=== PATIENT | female | born 1950 | race Hispanic/Latino ===

== ENCOUNTER 2022-12-22 06:21 | Day surgery (SDC) | payer MEDICARE ==
[2022-12-20 12:44] VITALS: BP 175/77; PULSE 66; RESP 18
[2022-12-20 12:46] LABS: BASOPHILS # (AUTO) 0.11 K/uL (0.00-0.20); BASOPHILS % (AUTO) 1.1 % (0.0-5.0); HEMATOCRIT 36.7 % (36-48); IMMATURE GRANULOCYTE ABSOLUTE 0.03 K/uL (0-1); LYMPHOCYTES # (AUTO) 4.6 K/uL (1.0-4.8); LYMPHOCYTES % (AUTO) 46.2 % (21.0-51.0); MEAN CORPUSCULAR HEMOGLOBIN 31.9 pg (27.0-33.0); MEAN CORPUSCULAR HGB CONC 33.5 g/dL (32.0-36.0); MEAN CORPUSCULAR VOLUME 95.1 fL (79-99); MONOCYTES # (AUTO) 0.8 K/uL (0.1-1.0); MONOCYTES % (AUTO) 8.3 % (3.0-13.0); NEUTROPHILS # (AUTO) 4.1 K/uL (1.8-7.7); NEUTROPHILS % (AUTO) 41.1 % (40.0-77.0); PLATELET COUNT (AUTO) 340 K/uL (130-400); RED BLOOD CELL COUNT(AUTO) 3.86 MIL/uL (4.00-5.50); RED CELL DISTRIBUTION WIDTH 13.4 % (11.0-15.5)
[2022-12-20 12:58] LABS: CREATININE 1.1 mg/dL (0.5-1.5); POTASSIUM 3.7 mmol/L (3.5-5.1)
[2022-12-20 13:01] LABS: INR 0.94 (0.85-1.15)
[2022-12-20 13:02] LABS: PARTIAL THROMBOPLASTIN TIME 27.3 SEC (26.3-35.5)
[2022-12-20 13:22] LABS: B-TYPE NATRIURETIC PEPTIDE 100 pg/mL (0-100)
[2022-12-20 14:05] LABS: APPEARANCE,URINE CLEAR (CLEAR); BILIRUBIN,URINE NEGATIVE (NEGATIVE); COLOR,URINE COLORLESS (YELLOW); GLUCOSE, URINE (UA) NEGATIVE (NEGATIVE); KETONES,URINE NEGATIVE (NEGATIVE); LEUKOCYTE ESTERASE ,URINE 250 Leu/uL (NEGATIVE); NITRATE,URINE NEGATIVE (NEGATIVE); OCCULT BLOOD,URINE NEGATIVE (NEGATIVE); PROTEIN,URINE NEGATIVE (NEGATIVE); UROBILINOGEN,URINE 0.2 mg/dL (0.2-1.0)
[2022-12-20 14:06] LABS: ADD UA MICROSCOPIC YES
[2022-12-20 14:12] LABS: BACTERIA,URINE RARE /HPF (None Seen); RBC,URINE 0-1 /HPF (0-1); SQUAMOUS EPITHELIAL CELL,UR RARE /HPF (0-2)
[~2022-12-22] VITALS: Ht 162.6 cm; Wt 87.5 kg
[2022-12-22] VITALS (12 sets, daily range): BP systolic 116–172; BP diastolic 58–85; PULSE 60–83; RESP 10–20
[~2022-12-22 06:21] MED LIST: ATOR10 PO
[2022-12-22] MEDS ORDERED: 0.9%NACL 1000ML 1,000 ML IV ONE (07:18)
[2022-12-22] MEDS ORDERED: VALS320T16 PO (08:09)
[2022-12-22] MEDS ORDERED: [UNRECOGNIZED DRUG - OTHER] PO (08:09)
[2022-12-22] MEDS ORDERED: CALC-129 PO (08:09)
[2022-12-22] MEDS ORDERED: CHLO25TA3 PO (08:09)
[2022-12-22] MEDS ORDERED: KRIL1CAP29 PO (08:09)
[2022-12-22] MEDS ORDERED: MULT-1250 PO (08:09)
[2022-12-22] MEDS ORDERED: CYAN250010 PO (08:09)
[2022-12-22] MEDS ORDERED: AMLO2.5T4 PO (08:09)
[2022-12-22] MEDS ORDERED: CHOL500062 PO (08:09)
[2022-12-22] MEDS ORDERED: AEC81 PO (08:09)
[2022-12-22] MEDS ORDERED: NITROGLYCERIN 50MG VIAL ONE (08:33)
[2022-12-22] MEDS ORDERED: LIDOCAINE HCL 400MG/20ML VIAL ONE (08:33)
[2022-12-22] MEDS ORDERED: SODIUM BICARB 50MEQ 50ML VIAL 0 ML ONE (08:33)
[2022-12-22] MEDS ORDERED: HEPARIN 10,000 UNIT/10ML (1,000 UNIT/ML) VIAL ONE (08:33)
[2022-12-22] MEDS ORDERED: IODIXANOL 320 MG/ML 100 ML VIAL ONE ×2 (08:33→09:17)
[2022-12-22] MEDS ORDERED: MIDAZOLAM HCL 1 MG/ML 2ML VIAL ONE ×2 (08:51→08:55)
[2022-12-22] MEDS ORDERED: MEPERIDINE-PF 25 MG/ML SYG ONE ×2 (08:51→08:55)
[2022-12-22] MEDS ORDERED: CLOPIDOGREL 300MG TAB ONE (09:39)
[2022-12-22] MEDS ORDERED: 0.9%NACL 1000ML 1,000 ML IV SCH (10:00)
== END 2022-12-22 16:00 | disposition home or self-care (01) ==
LOC: DAH 06:21
PROVIDERS: ATTEND Internal Medicine Cardiovascular Disease
DX: I70.1 Atherosclerosis of renal artery (principal); I15.0 Renovascular hypertension; Q27.1 Congenital renal artery stenosis; I10 Essential (primary) hypertension; Z79.01 Long term (current) use of anticoagulants; Z79.899 Other long term (current) drug therapy; Z98.890 Other specified postprocedural states; Z90.710 Acquired absence of both cervix and uterus; Z90.81 Acquired absence of spleen
CPT/HCPCS: 80048; 83880; 85025; 85610; 85730; 87088; 81001; 36415; 71045; 93005; 37236; 36252; 85347; C1769; C1894; C1725; C1760; C1887; C1876; J3490 ×2; J7030 ×2; J1644 ×2; J2250 ×2; J2175 ×2; Q9967; A4215; A4335; A4222; A4221; A4663; A4216; A4606; A4223 ×3; A4554; 99156; 99157